=== PATIENT | female | born 1945 | race African-American/Black ===

== ENCOUNTER 2017-01-24 19:43 | Emergency (ER) | payer MEDICARE ==
[~2017-01-24] VITALS: Ht 165.1 cm; Wt 159.0 kg
[~2017-01-24 19:43] MED LIST: ACTOS30 MG OR; ACTOS30 MG PO; ACTOS45 MG PO; AUGMENTIN875TAB PO; CHILD ASA81 MG PO; COLCHICINE0.6 M2 PO; CRESTOR10 MG OR; CRESTOR40 MG PO; CYANOCOBALAM1000 MCG IM; FLAGYL500 MG PO; FLEXERIL PO; FLEXERIL10 MG OR; FLEXERIL10 MG PO; FLEXERIL5 MG PO; FLONASE NASAL50 MCG; FLUOXETINE20 MG PO; FLUOXETINE40 MG PO; FUROSEMIDE40 MG PO; GABAPENTIN300 MG PO; GLIPIZIDE ER10 M1 PO; GLIPIZIDE XL10 MG OR; HYDROCHLOROT12.5 MG PO; HYDROCHLOROT25 MG OR; LANTUS100 MG/ML SC; LASIX 40 MG TAB40 MG PO; LEVAQUIN750 MG PO; LEVOTHYROXIN50 MCG OR; LISINOP/HCTZ1 TA2 PO; LISINOPRIL10 MG PO; LISINOPRIL20 MG PO; LORATADINE10 M1 PO; LORTAB 7.5 OR; LYRICA75 MG PO; MEDDOSEPAK PO; METFORMIN1000 MG OR; METFORMIN1000 MG PO; METOPROLOL TART50 MG PO; MITIGARE0.6 MG PO; OXYCOD/APAP1 TA4 PO; PEN NEEDLE1 SC; PERCOCET 5/325M1 TAB PO; PERCOCET1 TA4 PO; POT CHLORIDE10 ME1 PO; PREDNISONE20 MG PO; PRILOSEC20 MG/CAP PO; PROAIR HFA IN; PROBENECID500 MG PO; ROBITUSSIN AC10 ML PO; SYNTHROID75 MCG PO; TORADOL PO; TRAMADOL HCL100 MG PO; VALIUM2 MG OR; VIBRAMYCIN100 M1 PO; VICODIN ES1 TAB PO; VICTOZA18 MG/3 ML SC; ZESTRIL PO; ZESTRIL/PRINIVI20 MG OR
[2017-01-24 20:38] LABS: HEMOGLOBIN 10.7 g/dl (12.0-16.0); IMMATURE GRANULOCYTES 0.2 % (0.0-1.0); MEAN CELL VOLUME 82.5 fL CALC (80.0-100.0); MEAN CORPUSCULAR HGB 25.2 pG CALC (26.0-32.0); MEAN CORPUSCULAR HGB CONC 30.6 g/L CALC (32.0-36.0); NEUT# 3.83 thou/uL (2.00-7.15); RED BLOOD COUNT 4.24 mill/uL (4.20-5.60); RED CELL DISTRI WIDTH 21.1 % (11.5-15.5)
[2017-01-24 20:52] LABS: ALBUMIN 3.6 g/dL (3.2-5.0); ALKALINE PHOSPHATASE 74 u/l (38-126); ANION GAP 11 (6-22 (CALC)); BILIRUBIN, TOTAL 0.7 mg/dL (0.0-1.4); BUN 22 mg/dL (8-23); BUN/CREATININE RATIO 22 (12-20 (CALC)); CALCIUM 8.8 mg/dL (8.4-10.2); CARBON DIOXIDE 27 mmol/l (22-30); CHLORIDE 107 mmol/l (95-108); GFR 55 ML/MIN (>=60 (CALC)); GFR FOR AFR.AMER. > 60 ML/MIN (>=60 (CALC)); GLUCOSE 207 mg/dL (82-115); POTASSIUM 4.4 mmol/l (3.5-5.1); SGOT/AST 19 u/l (9-36); SGPT/ALT 21 u/l (11-66); SODIUM 141 mmol/l (137-146)
[2017-01-24] MEDS ORDERED: NAPROSYN500 MG PO (21:44)
[2017-01-24] MEDS ORDERED: PERCOCET 10/31 COMBO PO (21:44)
[2017-01-24 21:47] VITALS: BP 183/57
== END 2017-01-24 21:52 | disposition home or self-care (01) ==
LOC: ED 19:43 → ED-I 21:15 → ED 21:52
PROVIDERS: Emergency Medicine
DX: M19.072 Primary osteoarthritis, left ankle and foot (principal); E11.9 Type 2 diabetes mellitus without complications; I10 Essential (primary) hypertension; E03.9 Hypothyroidism, unspecified; Z86.73 Personal history of transient ischemic attack (TIA), and cerebral infarction without residual deficits; Z96.651 Presence of right artificial knee joint

== ENCOUNTER 2018-07-05 12:35 | Inpatient (IN) | payer MEDICARE ==
[~2018-07-05] VITALS: Ht 165.1 cm; Wt 137.7 kg
[~2018-07-05 12:35] MED LIST changes: +NAPROSYN500 MG PO; +PERCOCET 10/31 COMBO PO
--- NOTE | 2018-07-05 12:51 | NUR ---
PT TRANSPORTED TO [facility] VIA WHEELCHAIR ACCOMPAINED BY VOLUNTEER. PT AMBULATED TO BED FROM WHEELCHAIR W/ MINIMAL ASSIST FROM [facility]URSING ASS[facility]. CALL LIGHT IN REACH. WILL CONTINUE TO MONITOR
[2018-07-05 13:07] VITALS: BP 155/77
[2018-07-05 13:44] LABS: HEMOGLOBIN 11.3 g/dl (12.0-16.0); IMMATURE GRANULOCYTES 0.2 % (0.0-5.0); MEAN CELL VOLUME 87.5 fL CALC (80.0-100.0); MEAN CORPUSCULAR HGB 26.7 pG CALC (26.0-32.0); MEAN CORPUSCULAR HGB CONC 30.5 g/L CALC (32.0-36.0); NEUT# 3.17 thou/uL (2.00-7.15); RED BLOOD COUNT 4.23 mill/uL (4.20-5.60); RED CELL DISTRI WIDTH 18.9 % (11.5-15.5)
--- NOTE | 2018-07-05 13:58 | NUR ---
PT ASSESSMENT COMPLETE. A/O X3. SPEECH IS CLEAR. RESP EVEN AND UNLABORED. LUNG SOUNDS CLEAR. TELE IN PLACE. PT HAS RESTING/EXERTIONAL SOB. O2 @3L ON PT. ABDOMEN DISTENDED,SOFT. BOWEL SOUNDS ACTIVE X4. STRONG RADIAL PULSES. WEAK PEDAL PULSES. +1 PITTING EDEMA NOTED TO BLE. ENCOURAGED ELEVATION. #24 RH @20. SITE APPEARS HEALTHY. SKIN INTACT. PT DENIES ANY PAIN AT THIS TIME. BSC NEAR BED. POC DISCUSSED. SAFETY PRECAUTIONS IN PLACE. CALL LIGHT IN REACH. WILL CONTINUE TO MONITOR
[2018-07-05 14:01] LABS: CREATININE 1.2 mg/dL (0.5-1.0); POTASSIUM 4.6 mmol/l (3.5-5.1)
--- NOTE | 2018-07-05 16:19 | NUR ---
PT SITTING ONN SIDE OF BED TALKING ON THE PHONE. RESP EVEN AND UNLABORED. O2 ON PT. TELE IN PLACE. PT DENIES ANY PAIN OR NEEDS. BSC NEAR BED. FAMILY AT BEDSIDE. CALL LIGHT IN REACH. WILL CONTINUE TO MONITOR
[2018-07-05 16:40] VITALS: BP 150/75
--- NOTE | 2018-07-05 18:30 | NUR ---
TRANSPORTED PT TO HAVE AN ECHO COMPLETED VIA
--- NOTE | 2018-07-05 19:20 | NUR ---
BEDSIDE REPORT RECEIVED FROM MELBA SOLANO. PT UP TO BSC AT THIS TIME; ALERT AND ORIENTED. DENIES PAIN. PT IS SLIGHTLY SOB; RESPIRATIONS EVEN AND LABORED. ASSISTED BACK INTO BED WITH SBA. PLAN OF CARE DISCUSSED. PT ENCOURAGED TO VERABLIZE CONCERNS. STATES UNDERSTANDING. SAFETY MEASURES IN PLACE. CALL LIGHT WITHIN REACH.
[2018-07-05 19:46] LABS: URINE BILIRUBIN - DIPSTICK NEGATIVE (NEGATIVE); URINE BLOOD DIPSTICK NEGATIVE (NEGATIVE); URINE COLOR YELLOW; URINE GLUCOSE - DIPSTICK NEGATIVE (NEGATIVE); URINE KETONE NEGATIVE (NEGATIVE); URINE LEUK ESTERASE NEGATIVE (NEGATIVE); URINE NITRITE - DIPSTICK NEGATIVE (Negative); URINE PROTEIN - DIPSTICK NEGATIVE (NEG-TRACE); URINE SPECIFIC GRAVITY 1.025; URINE UROBILINOGEN - DIPSTICK 0.2 E.U./dL (0.2)
[2018-07-05 19:47] LABS: URINE CLARITY CLEAR
[2018-07-05 20:00] VITALS: BP 162/76
[2018-07-06] VITALS (8 sets, daily range): BP systolic 142–184; BP diastolic 59–84
[2018-07-06] MEDS ORDERED: NAPROXEN500 MG PO (00:26)
[2018-07-06] MEDS ORDERED: PROBENECID500 MG PO (00:27)
[2018-07-06] MEDS ORDERED: PROTONIX40 M2 PO (00:27)
--- NOTE | 2018-07-06 01:00 | NUR ---
PT SLEEP AT THIS TIME; AWAKENS TO VERBAL STIMULI. BLOOD PRESSURE ELEVATED AT THIS TIME. REVIEWED HOME MEDICATIONS AND ADMINISTERED METOPROLOL; WILL REASSESS. ATIVAN GIVEN AT HS; PT STATES THAT IT HELPS HER WITH HER HALLUCINATIONS. IV FLUIDS INFUSING AT KVO WITHOUT DIFFICULTY; IV SITE APPEARS HEALTHY. IV LASIX ALSO GIVEN AT THIS TIME. PT UP TO BSC FREQUENTLY TO VOID CLEAR YELLOW URINE. DENIES PAIN. RESPIRATIONS EVEN AND SHALLOW ON 3L OF OXYGEN; SATURATIONS DECREASE WHILE ASLEEP AND ARE CURRENTLY 88% WHILE AWAKE. VERY SOB WITH EXERTION. BLE ELEVATED ON PILLOWS. SAFETY MEASURES IN PLACE. CALL LIGHT WITHIN REACH.
--- NOTE | 2018-07-06 04:37 | NUR ---
BLOOD PRESSURE DOWN FROM EARLIER. IV SITE TO RH APPEARS TO HAVE INFILTRATED; IV FLUIDS STOPPED. OXYGEN SATURATION BETTER WITH O2 IN MOUTH; PT BREATHS THROUGH HER MOUTH. UP TO BSC AGAIN TO VOID WITH SOB.
[2018-07-06 05:11] LABS: HEMATOCRIT 40.1 % (37.0-47.0); IMMATURE GRANULOCYTES 0.2 % (0.0-5.0); MEAN CELL VOLUME 87.6 fL CALC (80.0-100.0); MEAN CORPUSCULAR HGB 26.2 pG CALC (26.0-32.0); MEAN CORPUSCULAR HGB CONC 29.9 g/L CALC (32.0-36.0); NEUT# 3.07 thou/uL (2.00-7.15); RED BLOOD COUNT 4.58 mill/uL (4.20-5.60)
[2018-07-06 05:24] LABS: ALBUMIN 3.7 g/dL (3.2-5.0); BILIRUBIN, TOTAL 0.4 mg/dL (0.0-1.4); CHOLESTEROL HDL RATIO 4.1 (<4.4 (CALC)); CREATININE 1.2 mg/dL (0.5-1.0); POTASSIUM 4.5 mmol/l (3.5-5.1); TOTAL PROTEIN 7.3 g/dL (6.3-8.2)
[2018-07-06 05:50] LABS: TSH, 3RD GENERATION 2.78 uIU/mL (0.47 - 4.68)
--- NOTE | 2018-07-06 07:25 | NUR ---
REPORT RECEIVED FROM GAVI SPANGLER. PT SLEEPING. SITTING UPRIGHT IN BED. O2 @ 3L VIA NC. CALL LIGHT WITHIN REACH. WILL CONTINUE TO MONITOR.
--- NOTE | 2018-07-06 10:00 | NUR ---
DR. CARDENAS IN TO SEE PT. PLAN OF CARE UPDATED. PT TRANSFERED TO CHAIR AT BEDSIDE W/ STANDBY ASSIST. SOB W/ EXERTION NOTED.
--- NOTE | 2018-07-06 13:13 | NUR ---
PT ASSISTED W/SHOWER. PT TOLERATED ACTIVITY. SOB W/ EXERTION NOTED.
--- NOTE | 2018-07-06 14:34 | NUR ---
PHYSICAL THERAPY AT BEDSIDE.
--- NOTE | 2018-07-06 17:11 | NUR ---
PT SITTING IN CHAIR AT BEDSIDE. VISITOR PRESENT. PT DENIES ANY COMPLAINTS.
[2018-07-07 04:39] VITALS: BP 136/69
[2018-07-07 06:04] LABS: HEMATOCRIT 43.8 % (37.0-47.0); HEMOGLOBIN 13.1 g/dl (12.0-16.0); IMMATURE GRANULOCYTES 0.2 % (0.0-5.0); MEAN CELL VOLUME 87.3 fL CALC (80.0-100.0); MEAN CORPUSCULAR HGB 26.1 pG CALC (26.0-32.0); MEAN CORPUSCULAR HGB CONC 29.9 g/L CALC (32.0-36.0); NEUT# 3.36 thou/uL (2.00-7.15); RED BLOOD COUNT 5.02 mill/uL (4.20-5.60); RED CELL DISTRI WIDTH 18.6 % (11.5-15.5)
[2018-07-07 06:14] LABS: ALBUMIN 3.6 g/dL (3.2-5.0); ALKALINE PHOSPHATASE 89 u/l (38-126); ANION GAP 12 (6-22 (CALC)); BILIRUBIN, TOTAL 0.5 mg/dL (0.0-1.4); BUN 24 mg/dL (8-23); BUN/CREATININE RATIO 27 (12-20 (CALC)); CARBON DIOXIDE 35 mmol/l (22-30); CHLORIDE 100 mmol/l (95-108); CREATININE 0.9 mg/dL (0.5-1.0); GFR > 60 ML/MIN (>=60 (CALC)); GFR FOR AFR.AMER. > 60 ML/MIN (>=60 (CALC)); POTASSIUM 4.4 mmol/l (3.5-5.1); SGOT/AST 23 u/l (9-36); SODIUM 142 mmol/l (137-146); TOTAL PROTEIN 7.1 g/dL (6.3-8.2)
--- NOTE | 2018-07-07 07:00 | NUR ---
SHIFT CHANGE REPORT FROM CHENTE PEREZ AWAKE ALERT AND ORIENTED SITTING UP IN RECLINER, C/O NICKO KNEE PAIN, CONCERN ADDRESSED, TELE MONITOR IN PLACE, CALL PEDOR IN REACH.
--- NOTE | 2018-07-07 07:00 | NUR ---
SHIFT CHANGE REPORT FROM ANA, PT AWAKE ALERT AND ORIENTED, C/O ACHING HEADACHE @ 10/10, COOL COMPRESS APPLIED, DENIED CHEST PAIN, TELE MONITOR IN PLACE, CALL PEDRO IN REACH.
[2018-07-07 08:17] VITALS: BP 133/52
--- NOTE | 2018-07-07 10:41 | NUR ---
critical results giving to ordering physician.
[2018-07-07 11:15] VITALS: BP 158/58
--- NOTE | 2018-07-07 11:32 | NUR ---
DR CARDENAS NOTIFIED OF ABG RESULTS, PLAN TO BE D/C ON O2 IN AM.
--- NOTE | 2018-07-07 14:59 | NUR ---
Spoke to patient about medication history, counseled patient on diabetes. Patient verbally understood
[2018-07-07 15:35] VITALS: BP 173/69
--- NOTE | 2018-07-07 16:23 | NUR ---
RESTING IN BED IN SUPINE POSITION, REMINDED TO ASK FOR PAIN MED WHEN NEEDED BUT STATED SHE DOES NOT NEED IT NOW, ALL OTHER NEEDS ADDRESSED, WILL CONTINUE TO MONITOR.
--- NOTE | 2018-07-07 17:52 | NUR ---
DR CARDENAS NOTIFIED OF ELEVATED BP, NO NEW ORDERS.
--- NOTE | 2018-07-07 18:20 | NUR ---
The patient was seen for ambulation with and without her O2. She desaturated into the 80s without o2 and becmae dyspneic after only a few steps in place. She is limited by knee pain and dyspnea. She would do well at SNF but is insisting on going home with HH
[2018-07-07 19:14] VITALS: BP 168/83
[2018-07-08 00:10] VITALS: BP 173/79
[2018-07-08 04:39] VITALS: BP 177/76
[2018-07-08 05:26] LABS: HEMATOCRIT 38.9 % (37.0-47.0); HEMOGLOBIN 11.7 g/dl (12.0-16.0); IMMATURE GRANULOCYTES 0.2 % (0.0-5.0); MEAN CELL VOLUME 86.8 fL CALC (80.0-100.0); MEAN CORPUSCULAR HGB 26.1 pG CALC (26.0-32.0); MEAN CORPUSCULAR HGB CONC 30.1 g/L CALC (32.0-36.0); NEUT# 3.66 thou/uL (2.00-7.15); RED BLOOD COUNT 4.48 mill/uL (4.20-5.60); RED CELL DISTRI WIDTH 18.6 % (11.5-15.5)
[2018-07-08 05:42] LABS: ANION GAP 10 (6-22 (CALC)); BUN 22 mg/dL (8-23); BUN/CREATININE RATIO 26 (12-20 (CALC)); CARBON DIOXIDE 34 mmol/l (22-30); CHLORIDE 103 mmol/l (95-108); CREATININE 0.8 mg/dL (0.5-1.0); GFR > 60 ML/MIN (>=60 (CALC)); GFR FOR AFR.AMER. > 60 ML/MIN (>=60 (CALC)); POTASSIUM 4.9 mmol/l (3.5-5.1); SODIUM 142 mmol/l (137-146)
--- NOTE | 2018-07-08 07:01 | NUR ---
BEDSIDE REPORT RECEIVED BY ARGENIS. PT IS SLEEPING IN BED WITH NO S/S OF DISTRESS NOTED. CALL LIGHT IN REACH.
[2018-07-08 08:29] VITALS: BP 181/88
--- NOTE | 2018-07-08 09:13 | NUR ---
PT IS SITTING IN THE SIDE OF THE BED. MEDICATED PT WITH ZOFRAN SEE EMAR. ASSESSMENT DONE TELE IN PLACE. RESP ARE SHALLOW/DIMINISHED. O2 AT 3L/MIN VIA NC. PT DENIES PAIN AT THIS TIME. #24 LW THAT APPEARS HEALTHY. PT DENIES ANY OTHER NEEDS AT THIS TIME. SAFETY PRECAUTIONS RENFORCED AND CALL LIGHT IN REACH.
--- NOTE | 2018-07-08 09:50 | NUR ---
DR. CARDENAS AT BEDSIDE TO ASSESS PT. NOTIFIED MD RE; PT BP. ORDERS RECEIVED.
[2018-07-08 11:44] VITALS: BP 156/76
--- NOTE | 2018-07-08 11:45 | NUR ---
PT IS SITTING IN THE RECLINER WITH NO S/S OF DISTRESS NOTED. PT STATED THAT THE ZOFRAN HELPED SOME. FAMILY IN ROOM. PT DENIES NEEDS AT THIS TIME. CALL LIGHT IN REACH.
--- NOTE | 2018-07-08 12:16 | NUR ---
PT IS SITTING IN THE RECLINER AND STATED THAT SHE IS FEELING BETTER. THAT SHE IS READY TO GO HOME. CALL LIGHT IN REACH. CALL DR. CARDENAS RE: PT BP THAT CAME DOWN TO 156/76. STATED HE WILL ADD ORDRES LATER FOR PT TO BE DC TODAY.
[2018-07-08] MEDS ORDERED: FLEXERIL5 MG PO (14:56)
--- NOTE | 2018-07-08 15:20 | NUR ---
Discharge instructions given. Patient verbalizes understanding of same. Discharged in stable condition via Wheelchair to Home with spouse. 02 AT 2L/MIN VIA NC IN PLACE. All belongings sent with pt.
== END 2018-07-08 15:20 | disposition home or self-care (01) | DRG 292 ==
LOC: MS2 12:35
PROVIDERS: ADMIT Internal Medicine Geriatric Medicine; ATTEND Internal Medicine Geriatric Medicine
DX: I11.0 Hypertensive heart disease with heart failure (principal); Z68.43 Body mass index [BMI] 50.0-59.9, adult; F11.20 Opioid dependence, uncomplicated; I50.33 Acute on chronic diastolic (congestive) heart failure; E66.01 Morbid (severe) obesity due to excess calories; E03.9 Hypothyroidism, unspecified; G47.33 Obstructive sleep apnea (adult) (pediatric); J44.9 Chronic obstructive pulmonary disease, unspecified; E11.42 Type 2 diabetes mellitus with diabetic polyneuropathy; I25.10 Atherosclerotic heart disease of native coronary artery without angina pectoris; M19.90 Unspecified osteoarthritis, unspecified site; M10.9 Gout, unspecified; F32.9 Major depressive disorder, single episode, unspecified; F41.1 Generalized anxiety disorder; R09.02 Hypoxemia; E78.5 Hyperlipidemia, unspecified; K21.9 Gastro-esophageal reflux disease without esophagitis; K27.9 Peptic ulcer, site unspecified, unspecified as acute or chronic, without hemorrhage or perforation; J01.90 Acute sinusitis, unspecified; M25.462 Effusion, left knee; G89.29 Other chronic pain

== ENCOUNTER → 2018-10-25 | Outpatient (REF) | payer MEDICARE ==
[~2018-10-25] MED LIST changes: +NAPROXEN500 MG PO; +PROTONIX40 M2 PO
[2018-10-25 12:20] LABS: HEMATOCRIT 41.6 % (37.0-47.0); HEMOGLOBIN 12.6 g/dl (12.0-16.0); IMMATURE GRANULOCYTES 0.2 % (0.0-5.0); MEAN CELL VOLUME 90.8 fL CALC (80.0-100.0); MEAN CORPUSCULAR HGB 27.5 pG CALC (26.0-32.0); MEAN CORPUSCULAR HGB CONC 30.3 g/L CALC (32.0-36.0); NEUT# 3.41 thou/uL (2.00-7.15); RED BLOOD COUNT 4.58 mill/uL (4.20-5.60); RED CELL DISTRI WIDTH 19.9 % (11.5-15.5)
[2018-10-25 12:33] LABS: ALBUMIN 3.6 g/dL (3.2-5.0); BILIRUBIN, TOTAL 0.4 mg/dL (0.0-1.4); CHOLESTEROL HDL RATIO 4.4 (<4.4 (CALC)); CREATININE 1.2 mg/dL (0.5-1.0); POTASSIUM 4.4 mmol/l (3.5-5.1); TOTAL PROTEIN 6.8 g/dL (6.3-8.2)
[2018-10-25 13:06] LABS: TSH, 3RD GENERATION 3.07 uIU/mL (0.47 - 4.68)
== END | disposition home or self-care (01) ==
LOC: LAB 10:49
PROVIDERS: ATTEND Internal Medicine Geriatric Medicine
DX: E11.65 Type 2 diabetes mellitus with hyperglycemia (principal); I10 Essential (primary) hypertension; E78.5 Hyperlipidemia, unspecified; E03.9 Hypothyroidism, unspecified

== ENCOUNTER 2019-02-19 11:26 | Inpatient (IN) | payer MEDICARE ==
[2019-02-19] VITALS (25 sets, daily range): BP systolic 95–181; BP diastolic 56–124
[~2019-02-19] VITALS: Ht 165.1 cm; Wt 132.0 kg
[~2019-02-19 11:26] MED LIST changes: +LANTUS SOL100 UNIT/M SC; -LANTUS100 MG/ML SC
[2019-02-19 12:58] LABS: HEMATOCRIT 39.9 % (37.0-47.0); HEMOGLOBIN 12.3 g/dl (12.0-16.0); IMMATURE GRANULOCYTES 0.4 % (0.0-5.0); MEAN CELL VOLUME 87.7 fL CALC (80.0-100.0); MEAN CORPUSCULAR HGB CONC 30.8 g/L CALC (32.0-36.0); NEUT# 3.32 thou/uL (2.00-7.15); RED BLOOD COUNT 4.55 mill/uL (4.20-5.60); RED CELL DISTRI WIDTH 17.9 % (11.5-15.5)
[2019-02-19 13:03] LABS: URINE BILIRUBIN - DIPSTICK NEGATIVE (NEGATIVE); URINE BLOOD DIPSTICK NEGATIVE (NEGATIVE); URINE COLOR YELLOW; URINE GLUCOSE - DIPSTICK 100 mg/dL (NEGATIVE); URINE KETONE NEGATIVE (NEGATIVE); URINE LEUK ESTERASE NEGATIVE (NEGATIVE); URINE NITRITE - DIPSTICK NEGATIVE (Negative); URINE PROTEIN - DIPSTICK NEGATIVE (NEG-TRACE); URINE UROBILINOGEN - DIPSTICK 0.2 E.U./dL (0.2)
[2019-02-19 13:21] LABS: ANION GAP 14 (6-22 (CALC)); BUN 15 mg/dL (8-23); BUN/CREATININE RATIO 20 (12-20 (CALC)); CARBON DIOXIDE 30 mmol/l (22-30); CHLORIDE 100 mmol/l (95-108); CREATININE 0.8 mg/dL (0.5-1.0); GFR > 60 ML/MIN (>=60 (CALC)); GFR FOR AFR.AMER. > 60 ML/MIN (>=60 (CALC)); POTASSIUM 4.3 mmol/l (3.5-5.1); SODIUM 140 mmol/l (137-146)
[2019-02-19] MEDS ORDERED: OXYBUTYNIN5 M1 PO (13:47)
[2019-02-19] MEDS ORDERED: LEVOTHYROXIN100 MC1 PO (13:48)
[2019-02-19] MEDS ORDERED: QUETIAPINE FUMA50 MG PO (13:49)
[2019-02-19] MEDS ORDERED: CARAFATE PO (13:50)
[2019-02-20] VITALS (24 sets, daily range): BP systolic 106–174; BP diastolic 56–96
[2019-02-20 04:09] LABS: HEMATOCRIT 37.1 % (37.0-47.0); HEMOGLOBIN 11.3 g/dl (12.0-16.0); IMMATURE GRANULOCYTES 0.2 % (0.0-5.0); MEAN CELL VOLUME 88.5 fL CALC (80.0-100.0); MEAN CORPUSCULAR HGB CONC 30.5 g/L CALC (32.0-36.0); NEUT# 3.04 thou/uL (2.00-7.15); RED BLOOD COUNT 4.19 mill/uL (4.20-5.60)
[2019-02-20 04:29] LABS: ALBUMIN 3.5 g/dL (3.2-5.0); ALKALINE PHOSPHATASE 109 u/l (38-126); ANION GAP 12 (6-22 (CALC)); BILIRUBIN, TOTAL 0.5 mg/dL (0.0-1.4); BUN 16 mg/dL (8-23); BUN/CREATININE RATIO 18 (12-20 (CALC)); CALCULATED LDLCHOLESTEROL 116 mg/dL (62-129 (CALC)); CARBON DIOXIDE 31 mmol/l (22-30); CHLORIDE 98 mmol/l (95-108); CHOLESTEROL HDL RATIO 5.5 (<4.4 (CALC)); CREATININE 0.9 mg/dL (0.5-1.0); GFR > 60 ML/MIN (>=60 (CALC)); GFR FOR AFR.AMER. > 60 ML/MIN (>=60 (CALC)); HDL CHOLESTEROL 33 mg/dL (>=40); POTASSIUM 3.9 mmol/l (3.5-5.1); SGOT/AST 17 u/l (9-36); SODIUM 138 mmol/l (137-146); TOTAL CHOLESTEROL 183 mg/dl (0-199); TOTAL PROTEIN 6.3 g/dL (6.3-8.2); TOTAL TRIGLYCERIDES 168 mg/dl (30-149); VLDL CHOLESTROL 34 mg/dl (0-48 (CALC))
[2019-02-21] VITALS (23 sets, daily range): BP systolic 108–172; BP diastolic 50–91
[2019-02-21 05:42] LABS: HEMATOCRIT 38.4 % (37.0-47.0); HEMOGLOBIN 11.8 g/dl (12.0-16.0); IMMATURE GRANULOCYTES 0.2 % (0.0-5.0); MEAN CELL VOLUME 88.3 fL CALC (80.0-100.0); MEAN CORPUSCULAR HGB 27.1 pG CALC (26.0-32.0); MEAN CORPUSCULAR HGB CONC 30.7 g/L CALC (32.0-36.0); NEUT# 3.57 thou/uL (2.00-7.15); RED BLOOD COUNT 4.35 mill/uL (4.20-5.60); RED CELL DISTRI WIDTH 17.8 % (11.5-15.5)
[2019-02-21 06:14] LABS: ALBUMIN 3.4 g/dL (3.2-5.0); ALKALINE PHOSPHATASE 106 u/l (38-126); ANION GAP 13 (6-22 (CALC)); BILIRUBIN, TOTAL 0.5 mg/dL (0.0-1.4); BUN 16 mg/dL (8-23); BUN/CREATININE RATIO 19 (12-20 (CALC)); CARBON DIOXIDE 31 mmol/l (22-30); CHLORIDE 100 mmol/l (95-108); CREATININE 0.9 mg/dL (0.5-1.0); GFR > 60 ML/MIN (>=60 (CALC)); GFR FOR AFR.AMER. > 60 ML/MIN (>=60 (CALC)); POTASSIUM 3.9 mmol/l (3.5-5.1); SGOT/AST 20 u/l (9-36); SODIUM 141 mmol/l (137-146); TOTAL PROTEIN 6.4 g/dL (6.3-8.2)
[2019-02-22] VITALS (20 sets, daily range): BP systolic 111–164; BP diastolic 48–86
[2019-02-22 07:39] LABS: HEMATOCRIT 35.8 % (37.0-47.0); HEMOGLOBIN 10.9 g/dl (12.0-16.0); IMMATURE GRANULOCYTES 0.3 % (0.0-5.0); MEAN CELL VOLUME 89.1 fL CALC (80.0-100.0); MEAN CORPUSCULAR HGB 27.1 pG CALC (26.0-32.0); MEAN CORPUSCULAR HGB CONC 30.4 g/L CALC (32.0-36.0); RED BLOOD COUNT 4.02 mill/uL (4.20-5.60)
[2019-02-22 08:08] LABS: ALBUMIN 3.4 g/dL (3.2-5.0); ALKALINE PHOSPHATASE 110 u/l (38-126); ANION GAP 13 (6-22 (CALC)); BILIRUBIN, TOTAL 0.5 mg/dL (0.0-1.4); BUN 17 mg/dL (8-23); BUN/CREATININE RATIO 18 (12-20 (CALC)); CARBON DIOXIDE 31 mmol/l (22-30); CHLORIDE 100 mmol/l (95-108); CREATININE 0.9 mg/dL (0.5-1.0); GFR > 60 ML/MIN (>=60 (CALC)); GFR FOR AFR.AMER. > 60 ML/MIN (>=60 (CALC)); POTASSIUM 4.4 mmol/l (3.5-5.1); SGOT/AST 22 u/l (9-36); SODIUM 139 mmol/l (137-146); TOTAL PROTEIN 6.3 g/dL (6.3-8.2)
[2019-02-22 08:59] LABS: TSH, 3RD GENERATION 5.19 uIU/mL (0.47 - 4.68)
[2019-02-23] VITALS (10 sets, daily range): BP systolic 106–144; BP diastolic 46–73
[2019-02-23 05:54] LABS: HEMOGLOBIN 11.2 g/dl (12.0-16.0); IMMATURE GRANULOCYTES 0.6 % (0.0-5.0); MEAN CELL VOLUME 89.2 fL CALC (80.0-100.0); MEAN CORPUSCULAR HGB CONC 30.3 g/L CALC (32.0-36.0); NEUT# 7.57 thou/uL (2.00-7.15); RED BLOOD COUNT 4.15 mill/uL (4.20-5.60); RED CELL DISTRI WIDTH 18.1 % (11.5-15.5)
[2019-02-23 06:08] LABS: ALBUMIN 3.5 g/dL (3.2-5.0); BILIRUBIN, TOTAL 0.5 mg/dL (0.0-1.4); CREATININE 1.2 mg/dL (0.5-1.0); POTASSIUM 5.2 mmol/l (3.5-5.1); TOTAL PROTEIN 6.7 g/dL (6.3-8.2)
[2019-02-24 04:55] VITALS: BP 113/55
[2019-02-24 07:44] VITALS: BP 121/61
[2019-02-24 14:40] VITALS: BP 111/51
[2019-02-24 19:33] VITALS: BP 118/48
[2019-02-25 03:55] VITALS: BP 140/52
[2019-02-25 05:00] LABS: HEMATOCRIT 35.6 % (37.0-47.0); HEMOGLOBIN 10.7 g/dl (12.0-16.0); IMMATURE GRANULOCYTES 0.3 % (0.0-5.0); MEAN CELL VOLUME 89.4 fL CALC (80.0-100.0); MEAN CORPUSCULAR HGB 26.9 pG CALC (26.0-32.0); MEAN CORPUSCULAR HGB CONC 30.1 g/L CALC (32.0-36.0); NEUT# 5.28 thou/uL (2.00-7.15); RED BLOOD COUNT 3.98 mill/uL (4.20-5.60); RED CELL DISTRI WIDTH 18.3 % (11.5-15.5)
[2019-02-25 05:14] LABS: ALBUMIN 3.3 g/dL (3.2-5.0); BILIRUBIN, TOTAL 0.4 mg/dL (0.0-1.4); CREATININE 1.1 mg/dL (0.5-1.0); POTASSIUM 4.7 mmol/l (3.5-5.1); TOTAL PROTEIN 6.8 g/dL (6.3-8.2)
[2019-02-25 08:29] VITALS: BP 146/66
[2019-02-25 14:37] VITALS: BP 129/68
[2019-02-25 19:04] VITALS: BP 141/64
[2019-02-26 04:21] VITALS: BP 144/64
[2019-02-26 05:26] LABS: HEMATOCRIT 34.5 % (37.0-47.0); HEMOGLOBIN 10.3 g/dl (12.0-16.0); IMMATURE GRANULOCYTES 0.4 % (0.0-5.0); MEAN CELL VOLUME 88.9 fL CALC (80.0-100.0); MEAN CORPUSCULAR HGB 26.5 pG CALC (26.0-32.0); MEAN CORPUSCULAR HGB CONC 29.9 g/L CALC (32.0-36.0); NEUT# 3.57 thou/uL (2.00-7.15); RED BLOOD COUNT 3.88 mill/uL (4.20-5.60); RED CELL DISTRI WIDTH 18.2 % (11.5-15.5)
[2019-02-26 05:35] LABS: ALBUMIN 3.2 g/dL (3.2-5.0); BILIRUBIN, TOTAL 0.5 mg/dL (0.0-1.4); CREATININE 1.2 mg/dL (0.5-1.0); TOTAL PROTEIN 6.1 g/dL (6.3-8.2)
[2019-02-26 05:37] LABS: POTASSIUM 5.2 mmol/l (3.5-5.1)
[2019-02-26 08:30] VITALS: BP 148/70
[2019-02-26 16:00] VITALS: BP 149/70
[2019-02-26 19:25] VITALS: BP 178/76
[2019-02-27 03:45] VITALS: BP 183/73
[2019-02-27 05:49] VITALS: BP 159/61
[2019-02-27 07:39] VITALS: BP 118/60
[2019-02-27 16:12] VITALS: BP 156/59
[2019-02-27 19:11] VITALS: BP 144/71
[2019-02-28 04:10] VITALS: BP 149/70
[2019-02-28 08:14] VITALS: BP 144/55
[2019-02-28 08:29] LABS: HEMATOCRIT 34.3 % (37.0-47.0); HEMOGLOBIN 10.3 g/dl (12.0-16.0); IMMATURE GRANULOCYTES 0.4 % (0.0-5.0); MEAN CELL VOLUME 88.6 fL CALC (80.0-100.0); MEAN CORPUSCULAR HGB 26.6 pG CALC (26.0-32.0); NEUT# 5.05 thou/uL (2.00-7.15); RED BLOOD COUNT 3.87 mill/uL (4.20-5.60); RED CELL DISTRI WIDTH 17.7 % (11.5-15.5)
[2019-02-28 08:59] LABS: ALBUMIN 3.3 g/dL (3.2-5.0); ALKALINE PHOSPHATASE 120 u/l (38-126); ANION GAP 14 (6-22 (CALC)); BILIRUBIN, TOTAL 0.3 mg/dL (0.0-1.4); BUN 34 mg/dL (8-23); BUN/CREATININE RATIO 36 (12-20 (CALC)); CARBON DIOXIDE 32 mmol/l (22-30); CHLORIDE 98 mmol/l (95-108); CREATININE 0.9 mg/dL (0.5-1.0); GFR > 60 ML/MIN (>=60 (CALC)); GFR FOR AFR.AMER. > 60 ML/MIN (>=60 (CALC)); SGOT/AST 31 u/l (9-36); SODIUM 138 mmol/l (137-146); TOTAL PROTEIN 6.5 g/dL (6.3-8.2)
[2019-02-28] MEDS ORDERED: LEVAQUIN750 MG PO (09:03)
[2019-02-28 16:00] VITALS: BP 138/58
[2019-02-28 19:45] VITALS: BP 149/63
[2019-03-01 04:09] VITALS: BP 116/46
[2019-03-01 07:33] VITALS: BP 140/83
[2019-03-01 07:37] VITALS: BP 140/83
== END 2019-03-01 16:55 | DRG 308 ==
LOC: ICU 11:26 → MS2 02-23 14:45
PROVIDERS: ADMIT Internal Medicine Geriatric Medicine; ATTEND Internal Medicine Geriatric Medicine
PROC: 0T9B70Z Drainage of Bladder with Drainage Device, Via Natural or Artificial Opening (ICD-10-PCS; principal; 2019-02-19)
PROC: 5A09457 Assistance with Respiratory Ventilation, 24-96 Consecutive Hours, Continuous Positive Airway Pressure (ICD-10-PCS; 2019-02-19)
PROC: 0T9B70Z Drainage of Bladder with Drainage Device, Via Natural or Artificial Opening (ICD-10-PCS; 2019-02-22)
PROC: 3E0U33Z Introduction of Anti-inflammatory into Joints, Percutaneous Approach (ICD-10-PCS; 2019-02-23)
PROC: 3E0U3BZ Introduction of Anesthetic Agent into Joints, Percutaneous Approach (ICD-10-PCS; 2019-02-23)
DX: I47.1 Supraventricular tachycardia (principal); J18.9 Pneumonia, unspecified organism; I69.951 Hemiplegia and hemiparesis following unspecified cerebrovascular disease affecting right dominant side; I49.5 Sick sinus syndrome; I11.0 Hypertensive heart disease with heart failure; I50.9 Heart failure, unspecified; I25.10 Atherosclerotic heart disease of native coronary artery without angina pectoris; I48.0 Paroxysmal atrial fibrillation; J44.9 Chronic obstructive pulmonary disease, unspecified; E66.01 Morbid (severe) obesity due to excess calories; F41.1 Generalized anxiety disorder; F32.9 Major depressive disorder, single episode, unspecified; E78.5 Hyperlipidemia, unspecified; K21.9 Gastro-esophageal reflux disease without esophagitis; K27.9 Peptic ulcer, site unspecified, unspecified as acute or chronic, without hemorrhage or perforation; M25.462 Effusion, left knee; M19.90 Unspecified osteoarthritis, unspecified site; E03.9 Hypothyroidism, unspecified; G47.33 Obstructive sleep apnea (adult) (pediatric); E11.42 Type 2 diabetes mellitus with diabetic polyneuropathy; R26.9 Unspecified abnormalities of gait and mobility; R09.02 Hypoxemia; Z99.81 Dependence on supplemental oxygen; Z79.4 Long term (current) use of insulin
CPT/HCPCS: J1650

== ENCOUNTER 2019-04-24 11:38 | Observation (INO) | payer MEDICARE ==
[2019-04-24] VITALS (47 sets, daily range): BP systolic 92–170; BP diastolic 66–108
[~2019-04-24] VITALS: Ht 165.1 cm; Wt 134.4 kg
[~2019-04-24 11:38] MED LIST changes: +CARAFATE PO; +LEVOTHYROXIN100 MC1 PO; +OXYBUTYNIN5 M1 PO; +QUETIAPINE FUMA50 MG PO
[2019-04-24 13:09] LABS: URINE BILIRUBIN - DIPSTICK NEGATIVE (NEGATIVE); URINE BLOOD DIPSTICK NEGATIVE (NEGATIVE); URINE COLOR YELLOW; URINE GLUCOSE - DIPSTICK >=1000 mg/dL (NEGATIVE); URINE KETONE NEGATIVE (NEGATIVE); URINE LEUK ESTERASE NEGATIVE (Negative); URINE NITRITE - DIPSTICK NEGATIVE (Negative); URINE UROBILINOGEN - DIPSTICK 0.2 E.U./dL (0.2)
[2019-04-24 13:33] LABS: URINE CLARITY CLEAR; URINE PROTEIN - DIPSTICK Trace mg/dL (NEG-TRACE)
[2019-04-24 13:39] LABS: HEMOGLOBIN 11.9 g/dl (12.0-16.0); IMMATURE GRANULOCYTES 0.7 % (0.0-5.0); MEAN CELL VOLUME 86.8 fL CALC (80.0-100.0); MEAN CORPUSCULAR HGB 27.2 pG CALC (26.0-32.0); MEAN CORPUSCULAR HGB CONC 31.3 g/L CALC (32.0-36.0); NEUT# 4.01 thou/uL (2.00-7.15); RED BLOOD COUNT 4.38 mill/uL (4.20-5.60); RED CELL DISTRI WIDTH 18.4 % (11.5-15.5)
[2019-04-24 13:50] LABS: ANION GAP 15 (6-22 (CALC)); BUN 21 mg/dL (8-23); BUN/CREATININE RATIO 23 (12-20 (CALC)); CARBON DIOXIDE 28 mmol/l (22-30); CHLORIDE 100 mmol/l (95-108); CREATININE 0.9 mg/dL (0.5-1.0); GFR > 60 ML/MIN (>=60 (CALC)); GFR FOR AFR.AMER. > 60 ML/MIN (>=60 (CALC)); POTASSIUM 4.7 mmol/l (3.5-5.1); SODIUM 138 mmol/l (137-146)
[2019-04-24] MEDS ORDERED: LANTUS SOL100 UNIT/M SC (15:47)
[2019-04-24] MEDS ORDERED: QUETIAPINE FUMA50 MG PO ×2 (15:54→15:55)
[2019-04-24] MEDS ORDERED: CALTRATE 600+D31 TAB PO (15:56)
[2019-04-24] MEDS ORDERED: DEPO-MEDROL40 MG/ML IM (15:57)
[2019-04-24] MEDS ORDERED: GABAPENTIN300 M2 PO (15:58)
[2019-04-24] MEDS ORDERED: LIDOCAINE 1% IM (15:59)
[2019-04-24] MEDS ORDERED: MEDDOSEPAK (16:00)
== END 2019-04-24 16:45 ==
LOC: ICU 11:38
PROVIDERS: ADMIT Internal Medicine Geriatric Medicine; ATTEND Internal Medicine Geriatric Medicine
DX: I49.5 Sick sinus syndrome (principal); I48.0 Paroxysmal atrial fibrillation; I11.0 Hypertensive heart disease with heart failure; I50.9 Heart failure, unspecified; E11.9 Type 2 diabetes mellitus without complications; I25.10 Atherosclerotic heart disease of native coronary artery without angina pectoris; J44.9 Chronic obstructive pulmonary disease, unspecified; E66.01 Morbid (severe) obesity due to excess calories; G47.30 Sleep apnea, unspecified; E78.5 Hyperlipidemia, unspecified; K21.9 Gastro-esophageal reflux disease without esophagitis; K27.9 Peptic ulcer, site unspecified, unspecified as acute or chronic, without hemorrhage or perforation; M19.90 Unspecified osteoarthritis, unspecified site; E03.9 Hypothyroidism, unspecified; I69.959 Hemiplegia and hemiparesis following unspecified cerebrovascular disease affecting unspecified side; R26.89 Other abnormalities of gait and mobility; Z79.4 Long term (current) use of insulin; Z99.81 Dependence on supplemental oxygen
CPT/HCPCS: J2060

== ENCOUNTER 2019-07-13 11:58 | Emergency (ER) | payer MEDICARE ==
[~2019-07-13] VITALS: Ht 165.1 cm; Wt 116.4 kg
[~2019-07-13 11:58] MED LIST changes: +CALTRATE 600+D31 TAB PO; +DEPO-MEDROL40 MG/ML IM; +GABAPENTIN300 M2 PO; +LIDOCAINE 1% IM; +MEDDOSEPAK
[2019-07-13 13:54] VITALS: BP 147/77
[2019-07-14] MEDS ORDERED: LASIX 40 MG TAB40 MG PO (14:18)
[2019-07-14] MEDS ORDERED: TAMSULOSIN HCL0.4 MG PO (14:19)
[2019-07-14] MEDS ORDERED: STOOL SOFTENER100 MG PO (14:19)
[2019-07-14] MEDS ORDERED: CLOPIDOGREL75 MG PO (14:20)
[2019-07-14] MEDS ORDERED: BISACODYL5 MG PO (14:20)
[2019-07-14] MEDS ORDERED: PROCARDIA XL90 MG PO (14:20)
[2019-07-14] MEDS ORDERED: MAG OXIDE400 MG PO (14:21)
[2019-07-14] MEDS ORDERED: TRAMADOL HCL50 MG PO (14:23)
[2019-07-14] MEDS ORDERED: LEVOTHYROXIN125 MC1 PO (14:24)
== END 2019-07-13 14:15 | disposition home or self-care (01) ==
LOC: ED 11:58
DX: S82.001A Unspecified fracture of right patella, initial encounter for closed fracture (principal); E11.9 Type 2 diabetes mellitus without complications; I11.0 Hypertensive heart disease with heart failure; I50.9 Heart failure, unspecified; I25.10 Atherosclerotic heart disease of native coronary artery without angina pectoris; J44.9 Chronic obstructive pulmonary disease, unspecified; W01.0XXA Fall on same level from slipping, tripping and stumbling without subsequent striking against object, initial encounter; Y92.009 Unspecified place in unspecified non-institutional (private) residence as the place of occurrence of the external cause; Z79.4 Long term (current) use of insulin; Z96.651 Presence of right artificial knee joint

== ENCOUNTER 2019-07-14 11:26 | Emergency (ER) | payer MEDICARE ==
[~2019-07-14] VITALS: Ht 165.1 cm; Wt 116.4 kg
[2019-07-14 13:59] LABS: HEMATOCRIT 32.5 % (37.0-47.0); HEMOGLOBIN 9.8 g/dl (12.0-16.0); IMMATURE GRANULOCYTES 0.9 % (0.0-5.0); MEAN CELL VOLUME 88.3 fL CALC (80.0-100.0); MEAN CORPUSCULAR HGB 26.6 pG CALC (26.0-32.0); MEAN CORPUSCULAR HGB CONC 30.2 g/L CALC (32.0-36.0); NEUT# 5.8 thou/uL (2.00-7.15); RED BLOOD COUNT 3.68 mill/uL (4.20-5.60)
[2019-07-14 14:10] LABS: ALBUMIN 3.4 g/dL (3.2-5.0); BILIRUBIN, TOTAL 0.4 mg/dL (0.0-1.4); POTASSIUM 5.1 mmol/l (3.5-5.1); TOTAL PROTEIN 7.2 g/dL (6.3-8.2)
[2019-07-14 14:11] LABS: CREATININE 4.9 mg/dL (0.5-1.0)
[2019-07-14] MEDS ORDERED: LASIX 40 MG TAB40 MG PO (14:18)
[2019-07-14] MEDS ORDERED: STOOL SOFTENER100 MG PO (14:19)
[2019-07-14] MEDS ORDERED: TAMSULOSIN HCL0.4 MG PO (14:19)
[2019-07-14] MEDS ORDERED: PROCARDIA XL90 MG PO (14:20)
[2019-07-14] MEDS ORDERED: BISACODYL5 MG PO (14:20)
[2019-07-14] MEDS ORDERED: CLOPIDOGREL75 MG PO (14:20)
[2019-07-14] MEDS ORDERED: MAG OXIDE400 MG PO (14:21)
[2019-07-14] MEDS ORDERED: TRAMADOL HCL50 MG PO (14:23)
[2019-07-14] MEDS ORDERED: LEVOTHYROXIN125 MC1 PO (14:24)
[2019-07-14 15:50] VITALS: BP 145/89
== END 2019-07-14 15:51 | disposition short-term general hospital (02) ==
LOC: ED 11:26
PROVIDERS: Emergency Medicine
PROC: 0BH17EZ Insertion of Endotracheal Airway into Trachea, Via Natural or Artificial Opening (ICD-10-PCS; principal; 2019-07-14)
DX: R40.4 Transient alteration of awareness (principal); E11.649 Type 2 diabetes mellitus with hypoglycemia without coma
CPT/HCPCS: J1953; J2060